=== PATIENT | male | born 1960 | race Caucasian/White ===

== ENCOUNTER 2020-06-18 13:03 | Emergency (ER) | payer OTHER ==
[~2020-06-18] VITALS: Ht 182 cm; Wt 95.0 kg
[~2020-06-18 13:03] MED LIST: AMLO5TAB2 PO; ASPI-587 PO; ATOR20TA66 PO; CODE118S2 PO; CYCL10TA9 PO; HYDR-2890 PO; IBUP800T26 PO; INSU100C3 SQ; INSU100V6 SQ; LEVO500T69 PO; METF-380 PO
[2020-06-18 13:15] VITALS: BP 159/89
[2020-06-18] MEDS ORDERED: NS IV 1000 ML 1,000 ML IV SCH (13:30)
[2020-06-18 13:32] LABS: BASOPHILS # (AUTO) 0.1 10^3/uL (0.0-0.1); BASOPHILS % (AUTO) 1 % (0-10); EOSINOPHILS # (AUTO) 0.2 10^3/uL (0.0-0.3); EOSINOPHILS % (AUTO) 2 % (0-10); HEMATOCRIT 45 % (40-54); HEMOGLOBIN 15.7 g/dL (13.3-17.7); LYMPHOCYTES # (AUTO) 1.9 10^3/uL (1.0-4.0); LYMPHOCYTES % (AUTO) 18 % (12-44); MEAN CORPUSCULAR HEMOGLOBIN 31 pg (25-34); MEAN CORPUSCULAR HGB CONC 35 g/dL (32-36); MEAN CORPUSCULAR VOLUME 88 fL (80-99); MEAN PLATELET VOLUME 11.4 fL (9.0-12.2); MONOCYTES # (AUTO) 0.6 10^3/uL (0.0-1.0); MONOCYTES % (AUTO) 5 % (0-12); NEUTROPHILS # (AUTO) 7.9 10^3/uL (1.8-7.8); NEUTROPHILS % (AUTO) 74 % (42-75); PLATELET COUNT 204 10^3/uL (130-400); WHITE BLOOD COUNT 10.7 10^3/uL (4.3-11.0)
[2020-06-18] MEDS ORDERED: ACETAMINOPHEN 325 MG TABLET PO STA (13:47)
[2020-06-18] MEDS ORDERED: inSUlin (REGULAR) HUMAN 1 UNIT/0.01 ML (CHARGE PER UNIT) SC STA (13:50)
[2020-06-18 13:54] LABS: ALBUMIN 4.1 GM/DL (3.2-4.5); BILIRUBIN,TOTAL 0.5 MG/DL (0.1-1.0); CALCIUM 8.7 MG/DL (8.5-10.1); CREATININE SERUM 1.25 MG/DL (0.60-1.30); POTASSIUM 4.2 MMOL/L (3.6-5.0); TOTAL PROTEIN 7.5 GM/DL (6.4-8.2)
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
--- NOTE | 2020-06-18 14:07 | Diagnostic Imaging Report ---
INDICATION: foot pain. TECHNIQUE: 3 views of the left foot CORRELATION STUDY: None FINDINGS: The osseous structures of the foot are intact. Joint spaces are maintained. Alignment anatomic. Prominent hypertrophic changes about the sesamoid bones laterally. Small plantar calcaneal spur. Soft tissues appearing unremarkable. IMPRESSION: 1. Negative for acute findings of the foot. Dictated by: Dictated on workstation # [id number]
--- NOTE | 2020-06-18 14:09 | Diagnostic Imaging Report ---
INDICATION: hand pain TECHNIQUE: Three views of the left hand. CORRELATION STUDY: None FINDINGS: There is abnormal bone density projected over the base of the 1st and 2nd metacarpals. Etiology or significance is indeterminate. The osseous structures otherwise intact and in normal alignment. Remaining joint spaces are unremarkable. Mild generalized soft tissue edema. IMPRESSION: 1. Questionable bone density interposed within the base of the 1st and 2nd metacarpal carpal. May reflect overlapping summation shadow. Possibility of a fracture of unknown origin not excluded. Correlation with patient's symptoms. Remainder of the osseous structures otherwise unremarkable Dictated by: Dictated on workstation # [id number]
== END 2020-06-18 14:35 | disposition home or self-care (01) ==
LOC: EDUNIT# 13:03 → ER 13:06
DX: S62.202A Unspecified fracture of first metacarpal bone, left hand, initial encounter for closed fracture (principal); S90.32XA Contusion of left foot, initial encounter; I10 Essential (primary) hypertension; E11.9 Type 2 diabetes mellitus without complications; F17.210 Nicotine dependence, cigarettes, uncomplicated; Z88.0 Allergy status to penicillin; Z88.1 Allergy status to other antibiotic agents; Z88.8 Allergy status to other drugs, medicaments and biological substances; Z79.82 Long term (current) use of aspirin; Z79.4 Long term (current) use of insulin; V28.0XXA Motorcycle driver injured in noncollision transport accident in nontraffic accident, initial encounter
CPT/HCPCS: 36415; 73130; 73630; 80053; 82962; 85025